=== PATIENT | male | born 1945 | race Caucasian/White ===

== ENCOUNTER 2017-01-24 08:23 | Outpatient (CLI) | payer MEDICARE, OTHER | END 2017-01-24 08:24 | disposition home or self-care (01) | DX: E78.00 Pure hypercholesterolemia, unspecified (principal) ==

== ENCOUNTER 2017-05-09 08:26 | Outpatient (CLI) | payer MEDICARE, OTHER ==
[2017-05-09 19:16] LABS: CHOL/HDL RATIO 2.9 (<5.0); CHOLESTEROL 167 mg/dL; HDL CHOLESTEROL 58 mg/dL; LDL/HDL RATIO 1.6 (<3.6); TRIGLYCERIDES 77 mg/dL; VLDL CHOLESTEROL 15 mg/dL
== END 2017-05-09 08:27 | disposition home or self-care (01) ==
LOC: LAB.F 08:26
PROVIDERS: ATTEND Internal Medicine
DX: E78.00 Pure hypercholesterolemia, unspecified (principal)
CPT/HCPCS: 36415; 80061; 84460

== ENCOUNTER 2017-06-07 10:21 | Outpatient (CLI) | payer MEDICARE, OTHER | END 2017-06-07 10:22 | disposition home or self-care (01) | LOC: SC 10:21 | PROVIDERS: ATTEND Internal Medicine Pulmonary Disease | DX: G47.33 Obstructive sleep apnea (adult) (pediatric) (principal) | CPT/HCPCS: 99203; G0463; 99212 ==

== ENCOUNTER 2017-07-18 13:08 | Outpatient (CLI) | payer MEDICARE, OTHER | END 2017-07-18 13:09 | disposition home or self-care (01) | LOC: SC 13:08 | PROVIDERS: ATTEND Internal Medicine Pulmonary Disease | DX: G47.33 Obstructive sleep apnea (adult) (pediatric) (principal) | CPT/HCPCS: 99213; G0463; 99212 ==

== ENCOUNTER 2018-01-02 09:28 | Outpatient (CLI) | payer MEDICARE, OTHER ==
[2018-01-02 18:10] LABS: BUN - BLOOD UREA NITROGEN 23 mg/dL (6-20); CARBON DIOXIDE - CO2 26 mmol/L (21-32); CHLORIDE 106 mmol/L (101-111); CHOL/HDL RATIO 2.9 (<5.0); CHOLESTEROL 153 mg/dL; GFR - MDRD 74 (>89); GLUCOSE 106 mg/dL (70-100); HDL CHOLESTEROL 53 mg/dL; LDL CHOLESTEROL,CALCULATED 91 mg/dL; LDL/HDL RATIO 1.7 (<3.6); SODIUM 139 mmol/L (135-145); VLDL CHOLESTEROL 9 mg/dL
[2018-01-02 20:23] LABS: HB2 TOTAL 15.6 g/dL; HEMOGLOBIN A1C 0.58 g/dL; HEMOGLOBIN A1C % 5.6 % (4.6-6.2)
== END 2018-01-02 09:29 | disposition home or self-care (01) ==
LOC: LAB.F 09:28
PROVIDERS: ATTEND Internal Medicine
DX: I10 Essential (primary) hypertension (principal); R73.02 Impaired glucose tolerance (oral); E78.00 Pure hypercholesterolemia, unspecified
CPT/HCPCS: 36415; 80048; 80061; 83036; 83721

== ENCOUNTER 2018-07-18 10:14 | Outpatient (CLI) | payer MEDICARE, OTHER | END 2018-07-18 10:15 | disposition home or self-care (01) | LOC: SC 10:14 | PROVIDERS: ATTEND Internal Medicine Pulmonary Disease | DX: G47.33 Obstructive sleep apnea (adult) (pediatric) (principal) | CPT/HCPCS: 99213; G0463; 99212 ==

== ENCOUNTER 2018-12-22 07:32 | Outpatient (CLI) | payer MEDICARE, OTHER ==
[2018-12-22 13:53] LABS: ALBUMIN 4.1 g/dL (3.2-5.5); ALBUMIN/GLOBULIN RATIO 1.4 (1.0-2.2); ALT ALANINE AMINOTRANSFERASE 27 IU/L (10-60); AST ASPARTATE AMINOTRANSFERASE 23 IU/L (10-42); BILIRUBIN,TOTAL 1.1 mg/dL (0.2-1.0); BUN - BLOOD UREA NITROGEN 23 mg/dL (6-20); CALCIUM 9.1 mg/dL (8.5-10.3); CARBON DIOXIDE - CO2 27 mmol/L (21-32); CHLORIDE 103 mmol/L (101-111); CREATININE 0.9 mg/dL (0.6-1.2); GFR - MDRD 83 (>89); GLUCOSE 118 mg/dL (70-100); SODIUM 137 mmol/L (135-145); TOTAL PROTEIN 7.1 g/dL (6.7-8.2)
[2018-12-22 14:15] LABS: ALKALINE PHOSPHATASE 50 IU/L (42-121); CHOL/HDL RATIO 2.9 (<5.0); CHOLESTEROL 149 mg/dL; HDL CHOLESTEROL 52 mg/dL; LDL CHOLESTEROL,CALCULATED 83 mg/dL; LDL/HDL RATIO 1.6 (<3.6); VLDL CHOLESTEROL 14 mg/dL
== END 2018-12-22 07:33 | disposition home or self-care (01) ==
LOC: LAB.F 07:32
PROVIDERS: ATTEND Internal Medicine
DX: E78.00 Pure hypercholesterolemia, unspecified (principal)
CPT/HCPCS: 36415; 80053; 80061; 83721

== ENCOUNTER 2019-08-14 10:16 | Outpatient (CLI) | payer MEDICARE, OTHER ==
--- NOTE | 2019-08-14 10:59 | SLEEP CARE CONSULTATION ---
Information from patient questionnaire entered by Mariam Durham. I have reviewed and concur with the information entered by Mariam Durham. This document represents the service I personally performed and the decisions made by me, Meeta Briggs MD, [facility]. History of Present Illness Previous diagnosis: Severe, Obstructive Sleep Apnea-Hypopnea Syndrome AHI: 45.6 Reason for CPAP/BiPAP follow up: annual Equipment type: CPAP Equipment obtained from: [employer] Mask brand: Respironics Prior sleep studies: Yes HPI additional information: HPI: Mr. Mayfield was diagnosed to have severe obstructive sleep apnea-hypopnea syndrome and returns today for annual follow up of CPAP therapy. The patient purchased the device from [employer]. He now wears a Respironics DreamWear nasal cushion mask. He continues to use the device nightly and all through the night. The compliance report shows that he uses the device 179 nights out of the past 180 nights, averaging 8.6 hours a night. He complains of no particular problem with the device such as soreness on the face, dry nose, epistaxis, nasal congestion or headache. He thinks that the pressure of 8 - 20 cmH2O is comfortable. On the CPAP therapy he notices improvement in his sleep quality, and that he wakes up feeling fresher in the morning and more awake/alert during the day. [place] Sleepiness Scale score is 9. His notices no snore at all. The average residual AHI is 3.1; and average time in large leak per day is 2.3 minutes. The 90th percentile pressure is 10.2 cmH2O. CPAP Compliance Data - Data Reviewed with Patient Average duration of nightly device use: 8H 37M Compliance rate %: 99.4 Current pressure setting (cmH2O): 8-20 Humidity settin Subjective Current pressure setting perceived as: comfortable Initial [place] Sleepiness Scale score: 9 Current [place] Sleepiness Scale score: 9 Allergies and Home Medications Drug allergies reviewed: Yes Home medication list reviewed: Yes Allergy and home medication list: Allergies: sulfa and penicillins Review of Systems Review of systems same as previous: Yes Physical Exam Weight: 237 lb Weight change since last visit: - 5 lbs Impression and Plan IMPRESSION: 1. Obstructive Sleep Apnea-Hypopnea Syndrome, severe, with the patient continuing to do well on nasal CPAP therapy. He has excellent compliance and significant clinical benefits. The current pressure appears effective and comfortable. Overall, he is very satisfied with treatment and plans to continue with it long-term. No adjustment is necessary today. Because he is not getting supplies from [employer], I will switch him to a different durable medical supplier. PLAN: 1. Continue with autoCPAP set between 8 and 20 cm H2O. 2. Try to lose weight 3. Try ResMed N30i mask. 4. Prescription made for supplies. 5. Return in one year for follow up or earlier if there is any problem with the treatment. I spent 100% of this 20 minute visit face to face with the patient with greater than 50% of this was spent time counseling the patient and coordination of care.
== END 2019-08-14 10:17 | disposition home or self-care (01) ==
LOC: SC 10:16
PROVIDERS: ATTEND Internal Medicine Pulmonary Disease
DX: G47.33 Obstructive sleep apnea (adult) (pediatric) (principal)
CPT/HCPCS: 99213; G0463; 99212

== ENCOUNTER 2020-08-26 09:54 | Outpatient (CLI) | payer MEDICARE, OTHER ==
--- NOTE | 2020-08-26 10:45 | SLEEP CARE CONSULTATION ---
Information from patient questionnaire entered by Melodie Damon. I have reviewed and concur with the information entered by Melodie Damon. This document represents the service I personally performed and the decisions made by me, Meeta Briggs MD, [facility]. History of Present Illness Service Date and Time: 08/26/2020 0954 Previous diagnosis: Severe, Obstructive Sleep Apnea-Hypopnea Syndrome AHI: 45.6 (in 2014) Reason for follow up: annual (last seen 2018) Equipment type: CPAP Equipment obtained from: [email or web address] Mask style: Nasal pillows Prior sleep studies: Yes Year and Where: 2004 - in [place], [place] ; 2014 - [facility] in [place], [place] Type of Sleep Study: Home sleep study HPI additional information: HPI: Mr. Mayfield was diagnosed to have severe obstructive sleep apnea-hypopnea syndrome and returns today for annual follow up of CPAP therapy. The patient purchased the device from [employer] but is getting supplies from [email or web address]. He now wears a Respironics DreamWear nasal cushion mask. He continues to use the device nightly and all through the night. The compliance report shows that he uses the device 180 nights out of the past 180 nights, averaging 8.6 hours a night. The > 4 hour compliance rate for the past 30 days is 100%. He complains of no particular problem with the device such as soreness on the face, dry nose, epistaxis, nasal congestion or headache. He thinks that the pressure of 8 - 20 cmH2O is comfortable. On the CPAP therapy he notices improvement in his sleep quality, and that he wakes up feeling fresher in the morning and more awake/alert during the day. [place] Sleepiness Scale score is 6 (was 9). The average residual AHI is 3.8; and average time in large leak per day is 1 minutes. The 90th percentile pressure is 10.4 cmH2O. CPAP Compliance Data - Data Reviewed with Patient Average duration of nightly device use: 8.6 Compliance rate %: 100 (180 days) Current pressure setting (cmH2O): 8-20 Humidity settin Average residual AHI: 3.8 Average large leak: 1 min 58 sec Subjective Current pressure setting perceived as: comfortable Initial [place] Sleepiness Scale score: 9 (in 2017) Current [place] Sleepiness Scale score: 6 Allergies and Home Medications Drug allergies reviewed: Yes (penicillin and sulfa) Home medication list reviewed: Yes Review of Systems Review of systems same as previous: Yes Physical Exam Vital signs obtained and entered by: To minimize the risk of COVID-19 exposure, detailed exam was not performed. Height: 6 ft 1 in Weight: 235 lb Body Mass Index: 30.9 BMI Classification: Obese Impression and Plan IMPRESSION: 1. Obstructive Sleep Apnea-Hypopnea Syndrome, severe, with the patient continuing to do well on nasal CPAP therapy. He has excellent compliance and significant clinical benefits. The current pressure appears effective and comfortable. Overall, he is very satisfied with treatment and plans to continue with it long-term. No adjustment is necessary today. Because the CPAP is now older than the useful life of 5 years, I will order the patient a new one and make it an autoCPAP set between 8 and 20 cmH2O. PLAN: 1. Continue with autoCPAP set between 8 and 20 cm H2O. 2. Prescription made for an autoCPAP, heated humidifier, and related supplies. 3. Return for follow up after one month on the new machine. Visit Type: In Office Time Spent with Patient (minutes): 15 Provider Statement: I spent 100% of the Face to Face Visit with the patient with greater than 50% spent counseling the patient and coordination of care.
== END 2020-08-26 09:55 | disposition home or self-care (01) ==
LOC: SC 09:54
PROVIDERS: ATTEND Internal Medicine Pulmonary Disease
DX: G47.33 Obstructive sleep apnea (adult) (pediatric) (principal); E66.9 Obesity, unspecified; Z68.30 Body mass index [BMI] 30.0-30.9, adult
CPT/HCPCS: 99213; G0463; 99212

== ENCOUNTER 2020-10-20 09:51 | Outpatient (CLI) | payer MEDICARE, OTHER ==
--- NOTE | 2020-10-20 11:15 | SLEEP CARE CONSULTATION ---
Information from patient questionnaire entered by Melodie Damon. I have reviewed and concur with the information entered by Melodie Damon. This document represents the service I personally performed and the decisions made by me, Meeta Briggs MD, [facility]. History of Present Illness Service Date and Time: 10/20/2020 0951 Previous diagnosis: Severe, Obstructive Sleep Apnea-Hypopnea Syndrome AHI: 45.6 (in 2014) Reason for follow up: first compliance after device update Equipment type: CPAP Equipment obtained from: [employer] Mask style: Nasal pillows Prior sleep studies: Yes Year and Where: 2004 - in [place], [place] ; 2014 - [facility] in [place], [place] Type of Sleep Study: Home sleep study HPI additional information: HPI: Mr. Mayfield was diagnosed to have severe obstructive sleep apnea-hypopnea syndrome and returns today for follow up of CPAP therapy. The patient recently acquired an new autoCPAP device from [employer]. He now wears a Respironics DreamWear nasal cushion mask. He uses the device nightly and all through the night. The compliance report shows that he uses the device 30 nights out of the past 30 nights, averaging 9.2 hours a night. The > 4 hour compliance rate for the past 30 days is 100%. He complains of no particular problem with the device such as soreness on the face, dry nose, epistaxis, nasal congestion or headache. He thinks that the pressure of 8 - 20 cmH2O is comfortable. On the CPAP therapy he notices improvement in his sleep quality, and that he wakes up feeling fresher in the morning and more awake/alert during the day. [place] Sleepiness Scale score is 4 (was 9). The average residual AHI is 3 (was 3.8); and average time in large leak per day is 9 minutes. The 90th percentile pressure is 10.4 cmH2O. CPAP Compliance Data - Data Reviewed with Patient Average duration of nightly device use: 9 hr 13 min Compliance rate %: 100 Current pressure setting (cmH2O): 8-12 Humidity settin Heated hose settin Average residual AHI: 3.0 Average large leak: 10 min 52 sec Subjective Initial [place] Sleepiness Scale score: 9 (in 2017) Current [place] Sleepiness Scale score: 4 Allergies and Home Medications Drug allergies reviewed: Yes (sulfa and penicillins) Home medication list reviewed: Yes Review of Systems Review of systems same as previous: Yes Physical Exam Vital signs obtained and entered by: To minimize the risk of COVID-19 exposure, detailed exam was not performed. Height: 6 ft 1 in Weight: 235 lb Weight change since last visit: -2 Body Mass Index: 30.9 BMI Classification: Obese Impression and Plan IMPRESSION: 1. Obstructive Sleep Apnea-Hypopnea Syndrome, severe, with the patient continuing to do well on nasal CPAP therapy. He has excellent compliance and significant clinical benefits. The current pressure appears effective and comfortable. Overall, he is very satisfied with treatment and plans to continue with it long-term. No adjustment is necessary today. PLAN: 1. Continue with autoCPAP set between 8 and 20 cm H2O. 2. Prescription made for an autoCPAP, heated humidifier, and related supplies. Return for follow up after one month on the new machine. Visit Type: In Office Time Spent with Patient (minutes): 15 Provider Statement: I spent 100% of the Face to Face Visit with the patient with greater than 50% spent counseling the patient and coordination of care.
== END 2020-10-20 09:52 | disposition home or self-care (01) ==
LOC: SC 09:51
PROVIDERS: ATTEND Internal Medicine Pulmonary Disease
DX: G47.33 Obstructive sleep apnea (adult) (pediatric) (principal); E66.9 Obesity, unspecified; Z68.30 Body mass index [BMI] 30.0-30.9, adult
CPT/HCPCS: 99213; G0463; 99212

== ENCOUNTER 2021-10-12 09:27 | Outpatient (CLI) | payer MEDICARE, OTHER ==
--- NOTE | 2021-10-13 08:38 | SLEEP CARE CONSULTATION ---
Information from patient questionnaire entered by Blank Butt MA. I have reviewed and concur with the information entered by Blank Butt MA. This document represents the service I personally performed and the decisions made by me, Meeta Briggs MD, [facility]. History of Present Illness Service Date and Time: 10/12/2021 0927 Previous diagnosis: Severe, Obstructive Sleep Apnea-Hypopnea Syndrome AHI: 45.6 (in 2014) Reason for follow up: annual (LAST SEEN 09/2020) Equipment type: CPAP Equipment obtained from: [employer] Mask style: Nasal pillows Prior sleep studies: Yes Year and Where: 2004 - in [place], [place] ; 2014 - [facility] in [place], [place] Type of Sleep Study: Home sleep study HPI additional information: HPI: Mr. Mayfield was diagnosed to have severe obstructive sleep apnea-hypopnea syndrome and returns today for follow up of CPAP therapy. The patient acquired an new autoCPAP device from [employer] last year. He now wears a Respironics DreamWear nasal cushion mask. He continues to use the device nightly and all through the night. The compliance report shows that he uses the device 180 nights out of the past 180 nights, averaging 8.8 hours a night. The > 4 hour compliance rate for the past 180 days is 100%. He was back using his old CPAP for a while because the recall. He is now using the Respironics DreamStation again because the old machine gave him a message error. He complains of no particular problem with the device such as soreness on the face, dry nose, epistaxis, nasal congestion or headache. He thinks that the pressure of 8 - 20 cmH2O is comfortable. On the CPAP therapy he notices improvement in his sleep quality, and that he wakes up feeling fresher in the morning and more awake/alert during the day. [place] Sleepiness Scale score is 4 (was 9). The average residual AHI is 3.2 (was 3); and average time in large leak per day is 3 minutes. The 90th percentile pressure is 10.8 cmH2O. Sleep Study - Results Type of Sleep Study: Home sleep study Prior sleep studies: Yes Year and Where: 2004 - in [place], [place] ; 2014 - [facility] in [place], [place] CPAP Compliance Data - Data Reviewed with Patient Average duration of nightly device use: 8 HOURS 49 MINUTES Compliance rate %: 60.6 Current pressure setting (cmH2O): 8-12 Humidity settin Heated hose settin Average residual AHI: 3.2 Average large leak: 2 MINUTE 57 SECONDS Subjective Initial [place] Sleepiness Scale score: 9 (in 2016) Current [place] Sleepiness Scale score: 4 (2020) Allergies and Home Medications Known drug allergies: Yes ([facility]) Drug allergies reviewed: Yes Home medication list reviewed: Yes Review of Systems Review of systems same as previous: Yes Physical Exam Vital signs obtained and entered by: Kamila BUTT CMA AALINDA Blood Pressure: 134/75 (right) Heart Rate: 79 O2 Saturation: 98 (with mask) Height: 6 ft 1 in Weight: 230 lb Body Mass Index: 30.3 BMI Classification: Obese Impression and Plan IMPRESSION: 1. Obstructive Sleep Apnea-Hypopnea Syndrome, severe, with the patient continuing to do well on nasal CPAP therapy. He has excellent compliance and significant clinical benefits. The current pressure appears effective and comfortable. Overall, he is very satisfied with treatment and plans to continue with it long-term. No adjustment is necessary today. The patient has already registered his Respironics DreamStation 1 and is waiting for the replacement. He denies seeing debris in the hose. No upper respiratory irritation symptoms. PLAN: 1. Continue with autoCPAP set between 8 and 20 cm H2O. 2. Give us a call when he receives his replacement device. We will see him after a month on the new device. Follow up with Sleep Care in: 6 months Visit Type: In Office Time Spent with Patient (minutes): 15 Provider Statement: I spent 100% of the Face to Face Visit with the patient with greater than 50% spent counseling the patient and coordination of care.
[2021-10-13 08:39] VITALS: BP 134/75
== END 2021-10-12 09:28 | disposition home or self-care (01) ==
LOC: SC 09:27
PROVIDERS: ATTEND Internal Medicine Pulmonary Disease
DX: G47.33 Obstructive sleep apnea (adult) (pediatric) (principal); E66.9 Obesity, unspecified; Z68.30 Body mass index [BMI] 30.0-30.9, adult
CPT/HCPCS: 99212; G0463

== ENCOUNTER 2022-05-24 11:23 | Outpatient (CLI) | payer MEDICARE, OTHER ==
[2022-05-24 11:48] VITALS: BP 119/78
--- NOTE | 2022-05-24 11:48 | SLEEP CARE CONSULTATION ---
Information from patient questionnaire entered by Blank Butt MA. I have reviewed and concur with the information entered by Blank Butt MA. This document represents the service I personally performed and the decisions made by me, Meeta Briggs MD, [facility]. History of Present Illness Service Date and Time: 05/24/2022 1123 Previous diagnosis: Severe, Obstructive Sleep Apnea-Hypopnea Syndrome AHI: 45.6 (in 2014) Reason for follow up: six month (LAST SEEN 09/2021, ANGELA, CHING 09/05/2020, ) Equipment type: CPAP Equipment obtained from: [employer] Mask style: Nasal pillows Prior sleep studies: Yes Year and Where: 2004 - in [place], [place] ; 2014 - [facility] in [place], [place] Type of Sleep Study: Home sleep study HPI additional information: Mr. Mayfield was diagnosed to have severe obstructive sleep apnea-hypopnea syndrome and returns today for follow up of CPAP therapy. The patient acquired a new Respironics DreamStation from [employer] in 2019. He now wears a Respironics DreamWear nasal cushion mask. He continues to use the device nightly and all through the night. He still has not received a replacement device from the reporter. He denies seeing debris in the water reservoir and has not had any respiratory symptoms. The compliance report shows that he uses the device 180 nights out of the past 180 nights, averaging 8.8 hours a night. The > 4 hour compliance rate for the past 180 days is 100%. He complains of no particular problem with the device such as soreness on the face, dry nose, epistaxis, nasal congestion or headache. He thinks that the pressure of 8 - 12 cmH2O is comfortable. On the CPAP therapy he notices improvement in his sleep quality, and that he wakes up feeling fresher in the morning and more awake/alert during the day. [place] Sleepiness Scale score is 4 (was 9). The average residual AHI is 3.2 (was 3); and average time in large leak per day is 3 minutes. The 90th percentile pressure is 10.8 cmH2O. Sleep Study - Results Type of Sleep Study: Home sleep study Prior sleep studies: Yes Year and Where: 2004 - in [place], [place] ; 2014 - [facility] in [place], [place] CPAP Compliance Data - Data Reviewed with Patient Average duration of nightly device use: NEED CHIP Subjective Initial [place] Sleepiness Scale score: 9 (in 2017) Allergies and Home Medications Known drug allergies: No (nka) Drug allergies reviewed: Yes Home medication list reviewed: Yes Review of Systems Review of systems same as previous: Yes Physical Exam Vital signs obtained and entered by: MICHAEL WILL Blood Pressure: 119/78 (rsp 20, pulse 68, right) Cuff size: wrist Heart Rate: 70 O2 Saturation: 96 Height: 6 ft 1 in Weight: 235 lb (clothes) Body Mass Index: 30.9 BMI Classification: Obese Impression and Plan IMPRESSION: 1. Obstructive Sleep Apnea-Hypopnea Syndrome, severe, with the patient continuing to do well on nasal CPAP therapy. He has excellent compliance and significant clinical benefits. The current pressure appears effective and comfortable. Overall, he is very satisfied with treatment and plans to continue with it long-term. No adjustment is necessary today. PLAN: 1. Continue with autoCPAP set between 8 and 12 cm H2O. 2. Return for follow up in a year or earlier if there is any problem. Follow up with Sleep Care in: 1 year Visit Type: In Office Time Spent with Patient (minutes): 20 Provider Statement: I spent 100% of the Face to Face Visit with the patient with greater than 50% spent counseling the patient and coordination of care.
== END 2022-05-24 11:24 | disposition home or self-care (01) ==
LOC: SC 11:23
PROVIDERS: ATTEND Internal Medicine Pulmonary Disease
DX: G47.33 Obstructive sleep apnea (adult) (pediatric) (principal); E66.9 Obesity, unspecified; Z68.30 Body mass index [BMI] 30.0-30.9, adult
CPT/HCPCS: 99213; G0463; 99212

== ENCOUNTER 2022-11-15 09:47 | Outpatient (CLI) | payer MEDICARE, OTHER ==
[2022-11-15 10:15] VITALS: BP 152/80
--- NOTE | 2022-11-15 10:15 | SLEEP CARE CONSULTATION ---
Information from patient questionnaire entered by Sylvia Fang. I have reviewed and concur with the information entered by Sylvia Fang. This document represents the service I personally performed and the decisions made by me, Meeta Briggs MD, [facility]. History of Present Illness Service Date and Time: 11/15/2022 0947 Previous diagnosis: Severe, Obstructive Sleep Apnea-Hypopnea Syndrome AHI: 45.6 (in 2014) Reason for follow up: annual (LAST SEEN 10/20/2020) Equipment type: CPAP (SOLIS) Equipment obtained from: [employer] Mask style: Nasal pillows Prior sleep studies: Yes Year and Where: 2004 - in [place], [place] ; 2014 - [facility] in [place], [place] Type of Sleep Study: Home sleep study HPI additional information: Mr. Mayfield was diagnosed to have severe obstructive sleep apnea-hypopnea syndrome and returns today for follow up of CPAP therapy. The patient acquired a new Respironics DreamStation from [employer] in 2019. He now wears a Respironics DreamWear nasal cushion mask. He continues to use the device nightly and all through the night. He received a replacement device from the crm manager in August. The compliance report shows that he uses the device 180 nights out of the past 60 nights, averaging 8.8 hours a night. The > 4 hour compliance rate for the past 60 days is 100%. He complains of no particular problem with the device such as soreness on the face, dry nose, epistaxis, nasal congestion or headache. He thinks that the pressure of 8 - 12 cmH2O is comfortable. On the CPAP therapy he notices improvement in his sleep quality, and that he wakes up feeling fresher in the morning and more awake/alert during the day. [place] Sleepiness Scale score is 4 (was 9). The average residual AHI is 2.6 (was 3); and average time in large leak per day is 2 minutes. The 90th percentile pressure is 10.8 cmH2O. Sleep Study - Results Type of Sleep Study: Home sleep study Prior sleep studies: Yes Year and Where: 2004 - in [place], [place] ; 2014 - [facility] in [place], [place] Subjective Initial [place] Sleepiness Scale score: 9 (in 2017) Current [place] Sleepiness Scale score: 4 (11/15/2022) Allergies and Home Medications Drug allergies reviewed: Yes Home medication list reviewed: Yes Review of Systems Review of systems same as previous: Yes Physical Exam Vital signs obtained and entered by: SYLVIA Monique MA Blood Pressure: 152/80 (LEFT ARM) Cuff size: regular Heart Rate: 74 O2 Saturation: 97 Height: 6 ft 1 in Weight: 237 lb Body Mass Index: 31.2 BMI Classification: Obese Impression and Plan IMPRESSION: 1. Obstructive Sleep Apnea-Hypopnea Syndrome, severe, with the patient continuing to do well on nasal CPAP therapy. He has excellent compliance and significant clinical benefits. The current pressure appears effective and comfortable. Overall, he is very satisfied with treatment and plans to continue with it long-term. No adjustment is necessary today. PLAN: 1. Continue with autoCPAP set between 8 and 12 cm H2O. 2. Return for follow up in a year or earlier if there is any problem. Continue with device pressure at (cmH2O): 8 - 12 Follow up with Sleep Care in: 1 year Visit Type: In Office Time Spent with Patient (minutes): 15 Provider Statement: I spent 100% of the Face to Face Visit with the patient with greater than 50% spent counseling the patient and coordination of care.
== END 2022-11-15 09:48 | disposition home or self-care (01) ==
LOC: SC 09:47
PROVIDERS: ATTEND Internal Medicine Pulmonary Disease
DX: G47.33 Obstructive sleep apnea (adult) (pediatric) (principal); E66.9 Obesity, unspecified; Z68.31 Body mass index [BMI] 31.0-31.9, adult
CPT/HCPCS: 99212; G0463

== ENCOUNTER 2023-11-14 14:06 | Outpatient (CLI) | payer MEDICARE, OTHER ==
--- NOTE | 2023-11-14 16:15 | SLEEP CARE CONSULTATION ---
Information from patient questionnaire entered by Sylvia Fang. I have reviewed and concur with the information entered by Sylvia Fang. This document represents the service I personally performed and the decisions made by me, Meeta Briggs MD, [facility]. History of Present Illness Service Date and Time: 11/14/2023 1406 Previous diagnosis: Severe, Obstructive Sleep Apnea-Hypopnea Syndrome AHI: 45.6 (in 2015) Reason for follow up: annual (LAST SEEN 10/2022) Equipment type: CPAP (SOLIS) Equipment obtained from: [facility] Mask style: Nasal pillows Prior sleep studies: Yes Year and Where: 2004 - in [place], [place] ; 2014 - [facility] in [place], [place] Type of Sleep Study: Home sleep study HPI additional information: Mr. Mayfield was diagnosed to have severe obstructive sleep apnea-hypopnea syndrome and returns today for follow up of CPAP therapy. The patient acquired a Respironics DreamStation from [facility] in 2019. The device was recalled and replaced about 2 years ago. He now wears a Respironics DreamWear nasal cushion mask. He continues to use the device nightly and all through the night. The compliance report shows that he uses the device 365 nights out of the past 365 nights, averaging 8.8 hours a night. The > 4 hour compliance rate for the past 365 days is 100%. He complains of no particular problem with the device such as soreness on the face, dry nose, epistaxis, nasal congestion or headache. He thinks that the pressure of 8 - 12 cmH2O is comfortable. On the CPAP therapy he notices improvement in his sleep quality, and that he wakes up feeling fresher in the morning and more awake/alert during the day. Horse Shoe Sleepiness Scale score is 7 (was 4). The average residual AHI is 2.5 (was 2.6); and average time in large leak per day is 2 minutes. The 90th percentile pressure is 10.0 cmH2O. Sleep Study - Results Type of Sleep Study: Home sleep study Prior sleep studies: Yes Year and Where: 2004 - in [place], [place] ; 2014 - [facility] in [place], [place] CPAP Compliance Data - Data Reviewed with Patient Average duration of nightly device use: 8HRS 47MINS 21SEC Compliance rate %: 100 (11/10/22-11/09/23) Current pressure setting (cmH2O): 8-12 Average residual AHI: 2.5 Subjective Initial Horse Shoe Sleepiness Scale score: 9 (in 2017) Current Horse Shoe Sleepiness Scale score: 7 (11/14/23) Allergies and Home Medications Drug allergies reviewed: Yes Home medication list reviewed: Yes Allergy and home medication list: Allergies No Known Drug Allergies Allergy (Verified 11/10/23 17:10) Review of Systems Review of systems same as previous: No (TACHYCARDIA) Physical Exam Vital signs obtained and entered by: SYLVIA Monique MA Blood Pressure: 165/78 (LEFT ARM) Cuff size: regular Heart Rate: 96 O2 Saturation: 98 Height: 6 ft 1 in Weight: 241 lb Body Mass Index: 31.8 BMI Classification: Obese Impression and Plan IMPRESSION: 1. Obstructive Sleep Apnea-Hypopnea Syndrome, severe, with the patient continuing to do well on nasal CPAP therapy. He has excellent compliance and significant clinical benefits. The current pressure appears effective and comfortable. Overall, he is very satisfied with treatment and plans to continue with it long-term. No adjustment is necessary today. PLAN: 1. Continue with autoCPAP set between 8 and 12 cm H2O. 2. Return for follow up in a year or earlier if there is any problem. He will be eligible for a new machine then. This visit is time-based and I spent 15 minutes with the patient and more than 50% of the time was spent counseling the patient. Follow up with Sleep Care in: 1 year Visit Type: In Office Time Spent with Patient (minutes): 15 Provider Statement: I spent 100% of the Face to Face Visit with the patient with greater than 50% spent counseling the patient and coordination of care.
[2023-11-14 16:22] VITALS: BP 165/78; O2SAT 98
== END 2023-11-14 14:07 | disposition home or self-care (01) ==
LOC: SC 14:06
PROVIDERS: ATTEND Internal Medicine Pulmonary Disease
DX: G47.33 Obstructive sleep apnea (adult) (pediatric) (principal); E66.9 Obesity, unspecified; Z68.31 Body mass index [BMI] 31.0-31.9, adult
CPT/HCPCS: 99212; G0463